=== PATIENT | female | born 1940 | race Caucasian/White ===

== ENCOUNTER 2021-05-17 14:19 | Emergency (ER) | payer BC, SELFPAY ==
[2021-05-17 14:29] VITALS: BP 197/92; PULSE 80; RESP 16; TEMP 36.8; O2SAT 97; BMI 25.6
--- NOTE | 2021-05-17 14:49 | XRR_ITS ---
PROCEDURE INFORMATION: Exam: XR Chest Exam date and time: 05/17/2021 2:49 PM Age: 80 years old Clinical indication: Condition or disease; Other: HTN TECHNIQUE: Imaging protocol: XR of the chest. Views: 1 view. COMPARISON: No relevant prior studies available. FINDINGS: Lungs: No focal airspace disease. Pleural spaces: Unremarkable. No pleural effusion. No pneumothorax. Heart/Mediastinum: Cardiomediastinal silhouette is within normal limits. Bones/joints: Unremarkable. XR/XR chest 1V portable [id number] IMPRESSION: No acute cardiopulmonary abnormality.
--- NOTE | 2021-05-17 14:49 | ECG_ITS ---
[facility] Test Date: 2021-05-17 Pat Name: Chuck Wei Department: Room: Gender: Female [place] Compounder: : 1940 Requested By: Gautam Alcala Order Number: [id number] Leonides MD: Nii Ovalle M.D. Measurements Intervals Arab Rate: 70 P: 64 OR: 155 QRS: -11 QRSD: 86 T: 16 QT: 385 QTc: 416 Interpretive Statements SINUS RHYTHM VOLTAGE CRITERIA FOR LVH [MEETS CRITERIA IN ONE OF: R(aVL), S(V1), R(V5), R(V5/V6)+S(V1)] POSSIBLE ANTERIOR MYOCARDIAL INFARCTION , PROBABLY OLD [30 ms Q WAVE IN V3/V4, OR R < 0.2 mV IN V4] No previous ECG available for comparison Electronically Signed On 05-17-2021 18:40:49 CDT by Nii Ovalle M.D. [id number] f
--- NOTE | 2021-05-17 14:52 | W.ED.GENADLT ---
Documented by User: [email or web address] Starr 05/18/21 07:07 HPI - General Adult General: Chief complaint: General Medical Stated complaint: heart problems Time Seen by Provider: 05/17/21 14:41 History of Present Illness: Patient here because blood pressures been staying up around 200 on top number. Was at her provider recently and metoprolol was changed 50 mg twice daily. Patient takes no other medication for blood pressure patient no complaints other symptoms is nervous that her blood pressure has been staying high. Associated symptoms: Deny chest pain, dyspnea, headache(s), nausea, rash, palpitations or vomiting Review of Systems Const: Denies: fever(s), chills or body aches Eyes: Denies: eye discomfort ENMT: Denies: throat pain Card: Reports: other (Hypertension); Denies: chest pain, palpitations or irregular heart rhythm Resp: Denies: dyspnea GI: Denies: abdominal pain, nausea or vomiting Skin/Breast: Denies: rash Neuro: Denies: headache(s) Psych: Denies: depression or suicidal ideation Physical Exam Const: COMMON NORMALS: no acute distress, patient oriented x3 and alert HENMT: COMMON NORMALS: normocephalic and external ears normal HEAD & SCALP: normocephalic EXTERNAL EAR: Yes external ears normal Eye: COMMON NORMALS: EOMs intact bilaterally Neck/C-Spine: COMMON NORMALS: no JVD Resp: COMMON NORMALS: normal respiratory effort and No use of accessory muscles Cardio: COMMON NORMALS: no JVD GI: INSPECTION: Yes normal to inspection Extremity: COMMON NORMALS: normal to inspection and full ROM Neuro: COMMON NORMALS: patient oriented x3 SENSORIUM/ORIENTATION: Yes alert Psych: COMMON NORMALS: mental status grossly normal Skin: COMMON NORMALS: no rashes or lesions noted GENERAL SKIN EXAM: no rashes or lesions noted Course Vital Signs: Vital signs: Vital Signs Temperature 98.3 F 05/17/21 14:29 Pulse Rate 80 05/17/21 14:29 Respiratory Rate 16 05/17/21 14:29 Blood Pressure 158/77 05/17/21 15:39 Pulse Oximetry 97 05/17/21 14:29 [facility] - General Adult Medical Decision Making Patient presents with hypertension. Readings at home with been higher than they were at the clinic when she was seen in and did receive the metoprolol tartrate change. Patient was given clonidine here in the ER which brought her blood pressure down nicely. Laboratory studies did not show any concerning findings. Patient was given a prescription for Micardis instructed to check blood pressure twice a day follow back up primary care within the next week or 2. Lab Data : 05/17/21 16:19 05/17/21 16:19 Radiology Impressions Chest X-Ray 05/17/21 14:49 IMPRESSION: No acute cardiopulmonary abnormality. Laboratory Results WBC 10.1 10^3/uL (4.0-10.0) H 05/17/21 16:19 RBC 4.55 10^6/uL (4.1-5.3) 05/17/21 16:19 Hgb 13.8 g/dL (11.5-15.3) 05/17/21 16: Hct 41.9 % (37.0-47.0) 05/17/21 16:19 MCV 92.1 fl (81-99) 05/17/21 16: MCH 30.3 pg (28.0-34.0) 05/17/21 16: MCHC 32.9 g/dL (30.0-36.0) 05/17/21 16: RDW 13.0 % (12.1-15.1) 05/17/21 16:19 Plt Count 287 10^3/cmm (130-400) 05/17/21 16:19 MPV 10.1 fL (7.4-10.4) 05/17/21 16:19 Neut % (Auto) 67.4 % 05/17/21 16:19 Lymph % (Auto) 23.1 % 05/17/21 16:19 [place] % (Auto) 6.5 % 05/17/21 16:19 Eos % (Auto) 1.9 % 05/17/21 16:19 Baso % (Auto) 0.7 % 05/17/21 16:19 Neut # (Auto) 6.79 10^3/uL (1.8-7.7) 05/17/21 16:19 Lymph # (Auto) 2.3 10^3/uL (0.8-4.8) 05/17/21 16:19 [place] # (Auto) 0.7 10^3/uL (0.2-0.9) 05/17/21 16:19 Eos # (Auto) 0.2 10^3/uL (0.0-0.8) 05/17/21 16:19 Baso # (Auto) 0.1 10^3/uL (0.0-0.1) 05/17/21 16:19 Nucleated RBC % (auto) 0 % 05/17/21 16:19 Nucleated RBCs # 0.0 /100WBC 05/17/21 16:19 Sodium 140 mmol/L (136-145) 05/17/21 16:19 Potassium 4.0 mmol/L (3.5-5.1) 05/17/21 16:19 Chloride 101 mmol/L (98-107) 05/17/21 16:19 Carbon Dioxide 27 mmol/L (22-29) 05/17/21 16:19 Anion Gap 16.0 (5-19) 05/17/21 16:19 BUN 14 mg/dL (8-23) 05/17/21 16:19 Creatinine 0.8 mg/dL (0.5-0.9) 05/17/21 16:19 GFR Calculation Not Reportable 05/17/21 16:19 Glucose 135 mg/dL (65-115) H 05/17/21 16:19 Calculated Osmolality 293 mOsm/kg (285-295) 05/17/21 16:19 Calcium 10.0 mg/dL (8.5-10.5) 05/17/21 16:19 Total Bilirubin 0.2 mg/dL (0.15-1.2) 05/17/21 16:19 AST 21 U/L (0-32) 05/17/21 16:19 ALT 19 U/L (0-33) 05/17/21 16:19 Alkaline Phosphatase 76 IU/L (35-105) 05/17/21 16:19 Total Protein 7.4 g/dL (6.6-8.7) 05/17/21 16:19 Albumin 4.8 g/dL (3.5-5.2) 05/17/21 16:19 Globulin 2.6 g/dL (1.3-4.6) 05/17/21 16:19 EKG Data EKG 1: EKG interpretation date: 05/17/21 EKG interpretation time: 15:20 Computer generated interpretation: Chest X-Ray 05/17/21 14:49 IMPRESSION: No acute cardiopulmonary abnormality. Sinus rhythm, LVH, possible anterior mild infarction old with Q wave in V3 V4. Ventricular rate 70 bpm [place] interval 155 ms QRS duration 86 ms QT is 385 ms Discharge Plan Discharge Patient Disposition: Home Clinical Impression: Benign essential HTN Condition: Stable Prescriptions: New Micardis 40 mg tablet 40 mg PO DAILY Qty: 14 0RF Discharge Orders: Discharge ED (Routine); Ordered 05/17/21 Ordered By: Gautam Alcala Discharge Diet: Usual diet Discharge Activity: Resume usual activity Patient Instructions: Chronic Hypertension (ED) Activity Restrictions/Additional Instructions: Follow-up with medical provider as directed. Take medications as prescribed. Return to the ER or your medical provider if condition worsens. Please read and understand discharge instructions. If any questions ask please. Continue present medication and add new blood pressure medication to your regimen. Hospital contact you with an appointment for [facility]. Continue to check blood pressure twice a day and report those readings back to [facility]. Coding Level of Care Code ED Cotton Seed Culler for Chg Fwd Exam Comprehensive Documented by User: Francisco Reyes DO 05/22/21 06:42 HPI - General Adult General: Chief complaint: General Medical Stated complaint: heart problems Time Seen by Provider: 05/17/21 14:41 Course Vital Signs: Vital signs: Vital Signs Temperature 98.3 F 05/17/21 14:29 Pulse Rate 80 05/17/21 14:29 Respiratory Rate 16 05/17/21 14:29 Blood Pressure 158/77 05/17/21 15:39 Pulse Oximetry 97 05/17/21 14:29 MDM - General Adult Medical Decision Making Patient presents with hypertension. Readings at home with been higher than they were at the clinic when she was seen in and did receive the metoprolol tartrate change. Patient was given clonidine here in the ER which brought her blood pressure down nicely. Laboratory studies did not show any concerning findings. Patient was given a prescription for Micardis instructed to check blood pressure twice a day follow back up primary care within the next week or 2. Chart reviewed and patient discussed with midlevel. Agree with assessment and plan. Medical Records I reviewed the patient's medical records. Lab Data I reviewed the patient's lab results. : 05/17/21 16:19 05/17/21 16:19 Radiology Impressions Chest X-Ray 05/17/21 14:49 IMPRESSION: No acute cardiopulmonary abnormality. Laboratory Results WBC 10.1 10^3/uL (4.0-10.0) H 05/17/21 16:19 RBC 4.55 10^6/uL (4.1-5.3) 05/17/21 16:19 Hgb 13.8 g/dL (11.5-15.3) 05/17/21 16:19 Hct 41.9 % (37.0-47.0) 05/17/21 16:19 MCV 92.1 fl (81-99) 05/17/21 16: MCH 30.3 pg (28.0-34.0) 05/17/21 16:19 MCHC 32.9 g/dL (30.0-36.0) 05/17/21 16:19 RDW 13.0 % (12.1-15.1) 05/17/21 16:19 Plt Count 287 10^3/cmm (130-400) 05/17/21 16:19 MPV 10.1 fL (7.4-10.4) 05/17/21 16:19 Neut % (Auto) 67.4 % 05/17/21 16:19 Lymph % (Auto) 23.1 % 05/17/21 16:19 [place] % (Auto) 6.5 % 05/17/21 16:19 Eos % (Auto) 1.9 % 05/17/21 16:19 Baso % (Auto) 0.7 % 05/17/21 16:19 Neut # (Auto) 6.79 10^3/uL (1.8-7.7) 05/17/21 16:19 Lymph # (Auto) 2.3 10^3/uL (0.8-4.8) 05/17/21 16:19 [place] # (Auto) 0.7 10^3/uL (0.2-0.9) 05/17/21 16:19 Eos # (Auto) 0.2 10^3/uL (0.0-0.8) 05/17/21 16:19 Baso # (Auto) 0.1 10^3/uL (0.0-0.1) 05/17/21 16:19 Nucleated RBC % (auto) 0 % 05/17/21 16:19 Nucleated RBCs # 0.0 /100WBC 05/17/21 16:19 Sodium 140 mmol/L (136-145) 05/17/21 16:19 Potassium 4.0 mmol/L (3.5-5.1) 05/17/21 16:19 Chloride 101 mmol/L (98-107) 05/17/21 16:19 Carbon Dioxide 27 mmol/L (22-29) 05/17/21 16:19 Anion Gap 16.0 (5-19) 05/17/21 16:19 BUN 14 mg/dL (8-23) 05/17/21 16:19 Creatinine 0.8 mg/dL (0.5-0.9) 05/17/21 16:19 GFR Calculation Not Reportable 05/17/21 16:19 Glucose 135 mg/dL (65-115) H 05/17/21 16:19 Calculated Osmolality 293 mOsm/kg (285-295) 05/17/21 16:19 Calcium 10.0 mg/dL (8.5-10.5) 05/17/21 16:19 Total Bilirubin 0.2 mg/dL (0.15-1.2) 05/17/21 16:19 AST 21 U/L (0-32) 05/17/21 16:19 ALT 19 U/L (0-33) 05/17/21 16:19 Alkaline Phosphatase 76 IU/L (35-105) 05/17/21 16:19 Total Protein 7.4 g/dL (6.6-8.7) 05/17/21 16:19 Albumin 4.8 g/dL (3.5-5.2) 05/17/21 16:19 Globulin 2.6 g/dL (1.3-4.6) 05/17/21 16:19 EKG Data EKG 1: Computer generated interpretation: Chest X-Ray 05/17/21 14:49 IMPRESSION: No acute cardiopulmonary abnormality. Discharge Plan Discharge Patient Disposition: Home Clinical Impression: Benign essential HTN Condition: Stable Prescriptions: New Micardis 40 mg tablet 40 mg PO DAILY Qty: 14 0RF Discharge Orders: Discharge ED (Routine); Ordered 05/17/21 Ordered By: Gautam Alcala Discharge Diet: Usual diet Discharge Activity: Resume usual activity Patient Instructions: Chronic Hypertension (ED) Activity Restrictions/Additional Instructions: Follow-up with medical provider as directed. Take medications as prescribed. Return to the ER or your medical provider if condition worsens. Please read and understand discharge instructions. If any questions ask please. Continue present medication and add new blood pressure medication to your regimen. Hospital contact you with an appointment for [facility]. Continue to check blood pressure twice a day and report those readings back to [facility]. Coding Level of Care Code ED Cotton Seed Culler for Javier Godoy Exam Comprehensive
[2021-05-17 15:39] VITALS: BP 158/77
[2021-05-17] MEDS: cloNIDine 0.1 mg Tablet 0.2 MG PO (15:39)
[2021-05-17 16:28] LABS: Basophils # 0.1 10^3/uL (0.0-0.1); Basophils % 0.7 %; Eosinophils # 0.2 10^3/uL (0.0-0.8); Eosinophils % 1.9 %; Hematocrit 41.9 % (37.0-47.0); Hemoglobin 13.8 g/dL (11.5-15.3); Lymphocytes # 2.3 10^3/uL (0.8-4.8); Lymphocytes % 23.1 %; Mean Corpuscular HGB Conc 32.9 g/dL (30.0-36.0); Mean Corpuscular Hemoglobin 30.3 pg (28.0-34.0); Mean Corpuscular Volume 92.1 fl (81-99); Mean Platelet Volume 10.1 fL (7.4-10.4); Monocytes # 0.7 10^3/uL (0.2-0.9); Monocytes % 6.5 %; Neutrophils # 6.79 10^3/uL (1.8-7.7); Neutrophils % 67.4 %; Nucleated Red Blood Cells % 0 %; Platelet Count 287 10^3/cmm (130-400); Red Blood Count 4.55 10^6/uL (4.1-5.3); White Blood Count 10.1 10^3/uL (4.0-10.0)
[2021-05-17 16:56] LABS: Alanine Aminotransferase 19 U/L (0-33); Albumin Level 4.8 g/dL (3.5-5.2); Alkaline Phosphatase 76 IU/L (35-105); Aspartate Amino Transferase 21 U/L (0-32); Blood Urea Nitrogen 14 mg/dL (8-23); Carbon Dioxide 27 mmol/L (22-29); Chloride 101 mmol/L (98-107); Globulin 2.6 g/dL (1.3-4.6); Glucose 135 mg/dL (65-115); Osmolality Calculated 293 mOsm/kg (285-295); Sodium 140 mmol/L (136-145); Total Bilirubin 0.2 mg/dL (0.15-1.2); Total Protein 7.4 g/dL (6.6-8.7)
--- NOTE | 2021-05-18 17:13 | DCPLANNER ---
Addendum entered by Lilia Hawthorne 07/05/21 19:05: Patient had a follow up appointment scheduled with [facility] - patient did attend appointment. Addendum entered by Lilia Hawthorne 05/22/21 08:21: Patient has a follow up appointment scheduled for Monday July 05, 2021 at 1:[address] Ramírez. division service manager called patient and gave patient the appointment information. Original Note: division service manager had message to schedule a follow up appointment for patient with [facility]. division service manager emailed patients information to both Taty Avalos and Taty Melgoza at [facility]. Patients information will be printed and reviewed. Clinic will call patient with appointment information.
== END 2021-05-17 17:24 | disposition home or self-care (01) ==
PROVIDERS: Emergency Provider Nurse Practitioner Family
DX: I10 Essential (primary) hypertension (principal)
CPT/HCPCS: 71045; 80053; 85025; 93005; 99283

== ENCOUNTER 2021-09-28 13:46 | Outpatient (CLI) | payer BC, SELFPAY ==
--- NOTE | 2021-09-28 14:00 | USCV_ITS ---
Chuck Wei Age: 80 Gender: F : 1940 Exam Date: 09/28/2021 14:04 Ordering Phys: Lelia Ramírez MD ([email or web address]) Technologist: Nimco Fontanez Exam Location: [facility] [place] Indication: Shortness of Breath BP: 137 / 76 HR: 73 Rhythm: Sinus Technical Quality: Adequate MEASUREMENTS (Male / Female) Normal Values 2D ECHO LV Diastolic Diameter PLAX 3.8 cm 4.2 - 5.9 / 3.9 - 5.3 cm LV Systolic Diameter PLAX 2.9 cm LV Chamber Size 3.4 cm IVS Diastolic Thickness 0.9 cm 0.6 - 1.0 / 0.6 - 0.9 cm IVS Systolic Thickness 1.1 cm LVPW Diastolic Thickness 1.0 cm 0.6 - 1.0 / 0.6 - 0.9 cm LVPW Systolic Thickness 1.1 cm RV Chamber Size 2.6 cm LVOT Diameter 2.0 cm LV Ejection Fraction 2D Teich 46.3 % LV Ejection Fraction MOD 2C 73.5 % LV Ejection Fraction 2C AL 74.6 % LA Diameter 3.0 cm LA Width 2.7 cm LA Height 3.0 cm RA Width 1.8 cm RA Height 3.5 cm Aorta at Sinotubular Diameter 2.3 cm IVC Diameter 1.9 cm M-MODE Aortic Annulus Diameter 3.0 cm LA Ao Ratio MM 1.1 MV E Point Septal Separation 0.4 cm DOPPLER AV Peak Velocity 150.0 cm/s LVOT Peak Velocity 106.0 cm/s AV Area Cont Eq vti 2.4 cm squared AV Area Cont Eq pk 2.3 cm squared MV Area PHT 3.3 cm squared Mitral E to A Ratio 0.9 MV E' Velocity 53.0 cm/s Mitral E to MV E' Ratio 10.4 Mitral E to LV E' Lateral Ratio 9.0 Mitral E to LV E' Septal Ratio 12.2 TR Peak Velocity 236.2 cm/s TR Peak Gradient 22.3 mmHg TR Mean Velocity 194.5 cm/s TR Mean Gradient 17.0 mmHg TR Velocity Time Integral 79.7 cm TV Peak E Velocity 87.0 cm/s Right Atrial Pressure 3.0 mmHg Pulmonary Artery Systolic Pressu 25.3 mmHg PV Peak Velocity 66.0 cm/s RV Acceleration Time 0.1 s RV Ejection Time 0.3 s RV AcT/ET 0.5 FINDINGS Left Ventricle Normal left ventricular size, systolic function and wall thickness, with no regional wall motion abnormalities. Left ventricular ejection fraction is estimated at 65 %. Normal diastolic function. Right Ventricle Normal right ventricular size and systolic function. Right ventricular systolic pressure 27 mmHg. Right Atrium Normal right atrial size. Aneurysmal interatrial septum. No ASD or PFO identified on the study. Left Atrium Normal left atrial size. Mitral Valve Mildly thickened mitral valve. No mitral valve stenosis. Trace mitral valve regurgitation. Aortic Valve Mildly thickened trileaflet aortic valve. No aortic valve stenosis. No aortic valve regurgitation. Tricuspid Valve Structurally normal tricuspid valve. Trace to mild tricuspid valve regurgitation. Pulmonic Valve Pulmonic valve not well visualized. No pulmonary valve stenosis. No pulmonary valve regurgitation. Pericardium No pericardial effusion. Aorta Normal-sized aortic root. IVC Normal IVC dimension with >50% respiratory change of the inferior vena cava. CONCLUSIONS 1. Normal left ventricular size, systolic function and wall thickness, with no regional wall motion abnormalities. Left ventricular ejection fraction is estimated at 65 %. Normal diastolic function. 2. Normal right ventricular size and systolic function. 3. Trace to mild tricuspid valve regurgitation. 4. Pulmonary artery pressure estimated at 27 mmHg. 5. Aneurysmal interatrial septum. No ASD or PFO identified on the study. 6. No prior similar studies to compare. Lelia Ramírez MD (Electronically Signed) Final Date: 02 October 2021 10:28 S
== END 2021-09-28 13:47 | disposition home or self-care (01) ==
PROVIDERS: Visit Provider Internal Medicine Cardiovascular Disease
DX: R06.02 Shortness of breath (principal); I07.1 Rheumatic tricuspid insufficiency
CPT/HCPCS: 93306; C8929